=== PATIENT | female | born 1975 | race Caucasian/White ===

== ENCOUNTER → 2018-04-08 | Outpatient (CLI) | payer BC ==
[2018-04-08 19:17] LABS: THYROID STIMULATING HORMONE 0.751 uIU/ML (0.358-3.740)
[2018-04-08 19:17] LABS: RHEUMATOID FACTOR QUANT < 10.0 IU/ML (<15.0)
[2018-04-11 14:29] LABS: ANTINUCLEAR ANTIBODIES DIRECT Negative (Negative)
== END ==
LOC: M SMT 15:05
DX: K14.6 Glossodynia (principal)
CPT/HCPCS: 84443

== ENCOUNTER → 2022-08-22 | Outpatient (REF) | payer BC | LOC: M LAB REF 18:48 | PROVIDERS: ATTEND Physician Assistant | DX: J06.9 Acute upper respiratory infection, unspecified (principal) ==